=== PATIENT | male | born 1950 | race Caucasian/White ===

== ENCOUNTER → 2017-03-16 | Outpatient (CLI) | payer MEDICARE, BC ==
[~2017-03-16] MED LIST: ASPIRIN LO-DOSE81 MG PO; CIPRO250 MG PO; FENOFIBRIC ACI135 MG PO; FISH OIL 1,0001 EAC4 PO; GLUCOPHAGE1000 MG PO; PERCOCET 5-3251 EACH PO; RAPATHA SUB-Q; VITAMIN D-32000 UNIT PO; VITAMIN E400 UNI2 PO; WELCHOL 625MG625 MG PO
== END | disposition disaster alternative care site (69) ==
LOC: GRAD 08:00
DX: M25.862 Other specified joint disorders, left knee (principal)

== ENCOUNTER 2017-03-19 05:21 | Day surgery (SDC) | payer MEDICARE, BC ==
[~2017-03-19] VITALS: Ht 175.3 cm; Wt 92.2 kg
--- NOTE | ~2017-03-19 | OR ---
PATIENT'S NAME: ONOFRE BALL [facility] AGE: 66 Y [address] ROOM: [place] [address] LOCATION: [facility] [place] ADMIT DATE: 03/19/2017 OR/Procedure Report DISCHARGE DATE: 03/19/2017 FAMILY PHYSICIAN: Alison Rosario MD ATTENDING PHYSICIAN: Jak Chi SURGEON: Jak Chi MD DIRECTOR OF RECRUITMENT AND ADMISSIONS: DATE OF PROCEDURE: 03/19/2017 PREOPERATIVE DIAGNOSIS: Carcinoma of the bladder. POSTOPERATIVE DIAGNOSIS: Deferred. PROCEDURE: Canceled. DESCRIPTION OF PROCEDURE: The patient was taken to the cysto room and after he was given 3 mg of Versed, he had marked vomiting and questionable aspiration. Therefore, the procedure was terminated and he was accompanied back to the outpatient department. JAK CHI MD EKWilner/leigh /[id number] d: 03/19/17 1759 t: 03/21/17 0454, OPERATIVE SUMMARY
[~2017-03-19 05:21] MED LIST changes: -PERCOCET 5-3251 EACH PO
[2017-03-19 06:01] LABS: BASOPHIL # 0.1 K/uL (0.0-0.2); BASOPHIL % 1.6 %; EOSINOPHIL # 0.4 K/uL (0.0-0.5); EOSINOPHIL % 7.3 %; HEMATOCRIT 44.5 % (37.0-53.0); HEMOGLOBIN 14.7 g/dL (11.0-16.0); IMMATURE GRANULOCYTE % 0.5 %; LYMPHOCYTE # 2.1 K/uL (0.8-4.0); LYMPHOCYTE % 37.1 %; MCV 90.8 fl (83.0-98.0); MONOCYTE # 0.7 K/uL (0.0-1.0); MONOCYTE % 11.5 %; MPV 9.6 fl (9.4-12.4); NEUTROPHIL # (ANC) 2.4 K/uL (1.4-9.0); NRBC % 0 /100WBC (0-0.00); PLATELET COUNT 262 K/uL (150-450); RDW-CV 13.6 % (11.9-14.6); WBC 5.6 K/uL (4.0-11.0)
[2017-03-19 06:17] LABS: ALK PHOS 47 IU/L (33-138); ALT 43 IU/L (12-78); ANION GAP 12.3 (10.0-19.0); AST 23 IU/L (10-40); BLOOD UREA NITROGEN 18 mg/dL (6-24); CALCIUM 9.1 mg/dL (8.5-10.5); CHLORIDE 108 mMol/L (96-110); CO2 25 mMol/L (22-32); CREATININE 1.1 mg/dL (0.6-1.3); ESTIMATED GFR (MDRD EQUATION) > 60; POTASSIUM 4.3 mMol/L (3.7-5.1); SODIUM 141 mMol/L (135-145); TOTAL BILIRUBIN 0.3 mg/dL (0.0-1.5); TOTAL PROTEIN 7.2 g/dL (6.0-8.4)
[2017-04-11] MEDS ORDERED: PERCOCET 5-3251 EACH PO (08:45)
== END 2017-03-19 08:00 | disposition disaster alternative care site (69) ==
LOC: GSDC 05:21
PROVIDERS: Urology
PROC: 0TJB8ZZ Inspection of Bladder, Via Natural or Artificial Opening Endoscopic (ICD-10-PCS; principal; 2017-03-19)
DX: C67.9 Malignant neoplasm of bladder, unspecified (principal); Z53.09 Procedure and treatment not carried out because of other contraindication; E11.9 Type 2 diabetes mellitus without complications; E78.00 Pure hypercholesterolemia, unspecified; Z85.46 Personal history of malignant neoplasm of prostate; Z87.891 Personal history of nicotine dependence; Z79.82 Long term (current) use of aspirin; Z91.030 Bee allergy status; Z79.899 Other long term (current) drug therapy; Z90.79 Acquired absence of other genital organ(s); Z98.890 Other specified postprocedural states
CPT/HCPCS: J0690; J0713; J2001; J7030; J7040

== ENCOUNTER → 2017-04-11 | Day surgery (SDC) | payer MEDICARE, BC ==
[~2017-04-11] VITALS: Ht 175.3 cm; Wt 90.8 kg
[~2017-04-11] MED LIST changes: +PERCOCET 5-3251 EACH PO
--- NOTE | ~2017-04-11 | OR ---
PATIENT'S NAME: ONOFRE BALL [facility] AGE: 66 Y [address] ROOM: [place] [address] LOCATION: [facility] [place] ADMIT DATE: 04/11/2017 OR/Procedure Report DISCHARGE DATE: FAMILY PHYSICIAN: Alison Rosario MD ATTENDING PHYSICIAN: Jak Chi SURGEON: Jak Chi MD LUSTER REPAIRER: DATE OF PROCEDURE: 04/11/2017 PREOPERATIVE DIAGNOSIS: Cancer of the bladder. POSTOPERATIVE DIAGNOSIS: Cancer of the bladder. PROCEDURE: 1. Cystoscopy and retrograde pyelograms. 2. Cystoscopy and bladder biopsy. DESCRIPTION OF PROCEDURE: After adequate anesthesia, he was prepped and draped. A #21 scope was passed. Anterior urethra and prostatic urethra were normal. The bladder looked really pretty good except an area directly posterior which has some changes of possible carcinoma in situ. There were no papillary tumors. Bilateral retrograde pyelograms were done using a #5 whistle-tip catheter. With endoscopic forceps, biopsies were taken. Biopsy sites were fulgurated with Bugbee electrode. He was then moved to another operating room for Dr. Nguyen' procedure. RETROGRADE PYELOGRAMS: Initial film showed normal bony structures. After the injection of contrast media, the ureter was of normal course and caliber. Upper collecting systems appeared normal with no filling defects. IMPRESSION: Normal retrograde pyelograms. JAK CHI MD EKL/modl /[id number] d: 04/11/17 0752 t: 04/13/17 0432, OPERATIVE SUMMARY
--- NOTE | ~2017-04-11 | OR ---
PATIENT'S NAME: ONOFRE BALL [facility] AGE: 66 Y [address] 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 PROCEDURES PERFORMED: 1. Debridement of left patellar tendon with excision of nonviable degenerated patellar tendon at the level of tibial tuberosity. 2. Excisional biopsy of associated bony mass at tibial tuberosity. 3. Primary repair of patellar tendon using FiberWire. 4. Use of intraoperative fluoroscopy, less than one hour. ANESTHESIA: General endotracheal anesthesia. FLUIDS: See anesthesia report. ESTIMATED BLOOD LOSS: Minimal. TOURNIQUET: Left proximal thigh, 250 mmHg. SPECIMENS: Calcified patellar tendon and bone biopsy. COMPLICATIONS: None. DISPOSITION: Stable, in PACU. COUNTS: All counts were correct. INDICATIONS: Mr. Ball is a 66-year-old gentleman who underwent the noted procedures above. The risks, benefits, and alternatives to pursuing surgical intervention were discussed with the patient in detail. The patient elected to proceed with surgery. This is in fact a combined procedure with Dr. Chi, but in a different room. The patient underwent a urological procedure this morning prior to this procedure. Anesthesia was consulted for their perioperative evaluation of the patient. PATIENT'S NAME: ONOFRE BALL [facility] AGE: 66 Y [address] ROOM: [place], [place] [address] LOCATION: [facility] [place] ADMIT DATE: 04/11/2017 OR/Procedure Report DISCHARGE DATE: FAMILY PHYSICIAN: Alison Rosario MD ATTENDING PHYSICIAN: Jak Chi DESCRIPTION OF PROCEDURE: The patient was brought from the other operating room to the sterile operating room. He was placed supine on the operating room table. The left lower extremity was prepped and draped in a sterile fashion. A time-out was performed. I turned my attention to the left knee. An Esmarch was used to exsanguinate the limb, and the tourniquet was inflated to 250 mmHg. I turned my attention to the patella. There was a large mass at the level of the tibial tuberosity. I introduced intraoperative fluoroscopy and identified the position of the mass fluoroscopically. Using a 15 blade knife, I made a 5 cm longitudinal incision over the tibial tuberosity through skin and subcutaneous tissue. I bluntly dissected with dissecting scissors down to the level of the patellar tendon. I sharply incised the patellar tendon with a fresh 15 blade knife and raised a flap on either side over the mass. Notably, the tendon at its insertion under the tibial tuberosity was quite tendinotic. I excised a portion of the nonviable tendinotic patellar tendon and sent it for biopsy. I subsequently excised the mass below the tendon that appeared to be calcific tendinosis. Using a rongeur, curettes and oscillating saw, I smoothed the bone down to a stable base. I was careful not to release too much of the patellar tendon to prevent iatrogenic rupture. A final fluoroscopic image in the AP and lateral projections revealed evidence of a successful excision of the mass at the tibial tuberosity. The wound was copiously irrigated with a normal sterile saline solution. Using a 2-0 FiberWire, I reapproximated and repaired the patellar tendon. A 2-0 Vicryl suture was used to reapproximate the subcutaneous tissue. A 2-0 nylon suture was used in an interrupted horizontal mattress fashion to reapproximate the skin. The tourniquet was let down. A sterile dressing was placed in the form of Xeroform followed by 4x4, Webril, and Osbaldo bandage to provide a compression dressing for the knee. After the sterile dressing was placed, the knee was taken through range of motion. The patellar tendon was stable. The patient had full range of motion, and the collaterals and cruciates were stable. The portion of the tendon that was biopsied was also accompanied by a biopsy of the bony tissue at the tibial tuberosity, the otherwise noted mass, for evaluation of the pathologist. The patient was then transferred from the operating room table onto the hospital bed and extubated. He was brought to the recovery room in stable condition. PATIENT'S NAME: LIZZYONOFRE [facility] AGE: 66 Y [address] ROOM: [place] [address] LOCATION: [facility] [place] ADMIT DATE: 04/11/2017 OR/Procedure Report DISCHARGE DATE: FAMILY PHYSICIAN: Alison Rosario MD ATTENDING PHYSICIAN: Jak Chi There were no intraoperative complications noted. Of note, my PA, Anthony Del Rosario PA-C, played an integral role in the intraoperative care of this patient. This included preoperative positioning, intraoperative expert retraction, and closing and dressing functions. IMPRESSION: The patient is status post the noted procedures above. PLAN: The patient will be weightbearing as tolerated on the left lower extremity. He will keep his dressing clean, dry, and intact. DVT prophylaxis will be provided. Pain control medicine will also be prescribed. He will follow up in my office in 2 weeks for his first postoperative visit. He was instructed to keep his dressing clean, dry, and intact. MD ALLYN HAYES/leigh /[id number] d: 04/11/17 1213 t: 04/12/17 0842, OPERATIVE SUMMARY
== END | disposition disaster alternative care site (69) ==
LOC: GSDC 04-04 05:15
PROC: 0TBB8ZX Excision of Bladder, Via Natural or Artificial Opening Endoscopic, Diagnostic (ICD-10-PCS; principal; 2017-04-11)
PROC: BT14ZZZ Fluoroscopy of Kidneys, Ureters and Bladder (ICD-10-PCS; 2017-04-11)
PROC: 0YBJ0ZZ Excision of Left Lower Leg, Open Approach (ICD-10-PCS; 2017-04-11)
DX: N30.20 Other chronic cystitis without hematuria (principal); M76.52 Patellar tendinitis, left knee; M65.262 Calcific tendinitis, left lower leg; E11.9 Type 2 diabetes mellitus without complications; E78.00 Pure hypercholesterolemia, unspecified; Z98.890 Other specified postprocedural states; Z90.49 Acquired absence of other specified parts of digestive tract; Z79.899 Other long term (current) drug therapy; Z85.46 Personal history of malignant neoplasm of prostate; Z87.891 Personal history of nicotine dependence; Z85.51 Personal history of malignant neoplasm of bladder
CPT/HCPCS: J0713; J2001; J2405; J3010; J7030; J7040